=== PATIENT | female | born 1980 | race Caucasian/White ===

== ENCOUNTER 2020-05-29 18:31 | Emergency (ER) | payer BC ==
[~2020-05-29] VITALS: Ht 170.2 cm; Wt 65.8 kg
[2020-05-29 18:38] VITALS: Ht 170.2 cm; Wt 65.8 kg
[2020-05-29 20:15] VITALS: BP 140/55
== END 2020-05-29 20:15 | disposition home or self-care (01) ==
LOC: ED 18:31
DX: S05.12XA Contusion of eyeball and orbital tissues, left eye, initial encounter (principal); Z88.1 Allergy status to other antibiotic agents; Z88.8 Allergy status to other drugs, medicaments and biological substances; W18.30XA Fall on same level, unspecified, initial encounter; Y93.89 Activity, other specified; Y92.89 Other specified places as the place of occurrence of the external cause; Y99.8 Other external cause status